=== PATIENT | male | born 1940 | race Caucasian/White ===

== ENCOUNTER → 2018-12-28 | Outpatient (CLI) | payer MEDICARE ==
--- NOTE | 2018-12-28 11:56 | Diagnostic Imaging Report ---
EXAMINATION: FOOT COMPLETE BILATERAL INDICATION: Foot pain, bilateral COMPARISON: None FINDINGS: AP, lateral and oblique images of both feet were obtained. Right foot: No acute fracture or dislocation. Alignment is anatomic. The soft tissues appear unremarkable. No substantial degenerative change. Left foot: No acute fracture or dislocation. Alignment is anatomic. No substantial degenerative change. Soft tissues appear unremarkable. IMPRESSION: No acute osseous injury. Signed by: Ramiro Garcia MD on 12/28/2018 11:53 AM
== END ==
LOC: RAD 10:54
PROVIDERS: ATTEND Internal Medicine
DX: M79.672 Pain in left foot (principal); M79.671 Pain in right foot